=== PATIENT | male | born 1965 | race Caucasian/White ===

== ENCOUNTER → 2020-12-29 | Outpatient (CLI) | payer OTHER ==
[~2020-12-29] MED LIST: ALEVE220 MG PO; BENTYL20 MG PO; CLARITIN10 MG PO; COZAAR 50 MG TA50 M2 PO; DOXYCYCLINE 10100 MG PO; FISH OIL 1,001000 M2 PO; FLOMAX0.4 MG PO; IBUPROFEN 800800 M1 PO; LEVOTHYROXIN0.125 M1 PO; LOPRESSOR50 PO; NORCO 5-325 TA1 EACH PO; PREDNISONE 10 M10 M1 PO; ZOCOR40 MG PO; ZOFRAN ODT4 MG PO
== END ==
LOC: M.CT 07:26
PROVIDERS: ATTEND Family Medicine
DX: Z13.6 Encounter for screening for cardiovascular disorders (principal); I25.10 Atherosclerotic heart disease of native coronary artery without angina pectoris